=== PATIENT | female | born 2000 | race Caucasian/White ===

== ENCOUNTER 2021-09-05 15:40 | Emergency (ER) | payer OTHER, SELFPAY ==
[2021-09-05 15:59] VITALS: BP 138/93; PULSE 155; RESP 16; TEMP 37.1; O2SAT 98
--- NOTE | 2021-09-05 16:08 | ECG_ITS ---
Measurements Intervals [place] Rate: 127 P: 64 ND: 165 QRS: 26 QRSD: 84 T: 29 QT: 285 QTc: 416 Interpretive Statements SINUS TACHYCARDIA Otherwise normal ECG NO PREVIOUS ECG AVAILABLE FOR COMPARISON Electronically Signed On 09-06-2021 17:48:33 CDT by Romario Thomason M.D.
[2021-09-05 16:34] LABS: Basophils Absolute Auto 0.01 K/mm3 (0.00-0.10); Basophils Percent Auto 0.1 % (0.0-1.0); Eosinophils Absolute Auto 0.08 K/mm3 (0.02-0.50); Eosinophils Percent Auto 0.9 % (1.0-6.0); Hematocrit 39.8 % (35.0-49.0); Immature Granulocyte Absolute 0.03 K/mm3 (0.00-0.00); Immature Granulocyte Percent A 0.3 % (0.0-0.0); Lymphocytes Absolute Auto 0.96 K/mm3 (1.10-4.50); Lymphocytes Percent Auto 10.3 % (18.0-42.0); Mean Corpuscular HGB Conc 32.7 g/dL (32.0-36.0); Mean Corpuscular Hemoglobin 32.8 pg (27.0-31.0); Mean Corpuscular Volume 100.5 fL (78.0-102.0); Mean Platelet Volume 9.9 fl (9.2-11.8); Monocytes Absolute Auto 0.47 K/mm3 (0.10-0.90); Neutrophils Absolute Auto 7.8 K/mm3 (1.7-7.2); Neutrophils Percent Auto 83.4 % (50.0-70.0); Platelet Count Result 229 K/mm3 (150-420); Red Blood Count 3.96 M/mm3 (4.20-5.40); Red Cell Distribution Width 12.6 % (11.6-14.4); White Blood Count 9.3 K/mm3 (4.8-10.8)
--- NOTE | 2021-09-05 16:34 | ED.PSYCH ---
HPI - Psych General Chief Complaint: Psychiatric Symptoms Stated Complaint: took 12 ibuprofen Time Seen by Provider: 09/05/21 15:42 Source: patient and RN notes reviewed Mode of arrival: ambulatory Limitations: no limitations History of Present Illness complaint: suicidal ideation and feels depressed Onset (ago): hour(s) (12) History of same: Yes Relieving factors: none Exacerbating factors: none Associated psychiatric symptoms: depression and suicidal ideation Associated symptoms: denies other symptoms Treatments prior to arrival: none If self harm: intentional overdose and self-inflicted trauma Related Data Home Medications Medication Instructions Recorded Confirmed norgestimate-ethinyl estradiol See Rx Instructions .ROUTE .COMPLEX 09/05/21 09/05/21 [[id number]] sertraline 25 mg PO DAILY 09/05/21 09/05/21 Allergies Allergy/AdvReac Type Severity Reaction Status Date / Time No Known Allergies Allergy Verified 09/05/21 16:07 Review of Systems Review of Systems: All systems reviewed & are unremarkable except as noted in HPI and below [facility] Past Medical History Medical History (Updated 09/06/21 @ 09:07 by Allan Stewart MD) Suicidal behavior Exam Const: General: no acute distress and alert Nutritional Appearance: obese Orientation/consciousness: patient oriented x3 Limitations: no limitations HENMT: Head: normal to inspection Ears: external ears normal, TM's normal bilaterally and EAC's normal General nose exam: Normal external nose present and Normal nares present Face and sinus: sinuses nontender Mouth: Yes moist mucous membranes abnormal Eyes: Conjunctivae: conjunctivae normal Pupils: Equal, round and reactive pupils present EOM: EOMs intact bilaterally Neck: Neck: normal visual inspection and no lymphadenopathy Chest: Chest palpation & inspection: normal inspection of the chest Resp: Effort & Inspection: normal respiratory effort Auscultation: clear to auscultation bilaterally Cardio: Rate: regular rate and tachycardic GI: GI Palp: Yes Soft to palpation and No Tenderness to palpation present (GI) Auscultation: normal bowel sounds : General: Yes bladder normal to palpation and Yes no CVA tenderness Back/Spine/Pelvis: Back: no CVA tenderness Skin: General skin exam: normal color Rashes: no rashes Neuro: General: patient oriented x3, moves all extremities, no meningeal signs, no focal motor deficits and CN's II-XI intact bilaterally Extrem: General: normal to inspection and no pedal edema Psych: Appearance: well kempt Affect: Sad affect present Thought content: Yes Suicidality present Course Course Emergency Course: Pt was stable and medically cleared for Behavioral Health review. For inpatient psych admission. Pt was endorsed to Dr Izquierdo at 0700 Reevaluation(s) Reevaluation #1: VSS. bilateral palmar forearms multiple superficial linear lacerations. Date: 09/05/21 Time: 16:38 Vital Signs Vital signs: Vital Signs Temperature 37.1 C 09/05/21 15:59 Pulse Rate 155 H 09/05/21 15:59 Respiratory Rate 16 09/05/21 15:59 Blood Pressure 138/93 H 09/05/21 15:59 Pulse Oximetry 98 09/05/21 15:59 Temperature 36.5 C 09/05/21 19:24 Pulse Rate 120 H 09/06/21 06:16 Respiratory Rate 16 09/06/21 06:16 Blood Pressure 116/75 09/06/21 06:16 Pulse Oximetry 99 09/06/21 06:16 MDM - Psych Differential Diagnosis Differential diagnosis: Likely suicidal ideation and depression Medical Records Attestation: I reviewed the patient's medical records. Lab Data Attestation: I reviewed the patient's lab results. Result diagrams: 09/05/21 16:29 09/05/21 20:30 Labs: Lab Results 09/05/21 09/05/21 09/05/21 Range/Units 16:29 1
[2021-09-05] MEDS: SODIUM CHLORIDE 0.9% IV 1,000 ML 999 ML IV CONT ×2 (16:50→20:25)
[2021-09-05 16:56] LABS: Acetaminophen 52 ug/mL (10-30); Alanine Aminotransferase 24 U/L (14-59); Albumin Level 3.6 g/dL (3.4-5.0); Alkaline Phosphatase 59 U/L (46-116); Anion Gap 9 mmol/L (8-16); Aspartate Amino Transferase 20 U/L (15-37); Bilirubin,Total 0.4 mg/dL (0.00-1.00); Blood Urea Nitrogen 9 mg/dL (7-18); Calcium 9.9 mg/dL (8.5-10.1); Carbon Dioxide 26 mmol/L (21-32); Chloride 103 mmol/L (98-108); Estimated Glomerular Filt Rate > 60; Glucose 102 mg/dL (70-99); Osmolality Calculated 284 mOsm/kg (285-295); Potassium 3.9 mmol/L (3.5-5.1); Sodium 138 mmol/L (136-145); Total Protein 7.5 g/dL (6.4-8.2)
[2021-09-05 16:57] LABS: Ethanol < 3 mg/dL (0-6); SPREG INTERNAL CONTROL Positive; Salicylate < 0.2 mg/dL (2.8-20.0); Serum Qual hCG Negative
[2021-09-05 17:00] LABS: Add Urine Microscopic? YES; Appearance Urine Clear (Clear); Bilirubin Urine Negative (Negative); Blood Urine 1+ (Negative); Color Urine Light Yellow (Yellow); Glucose Urine UA Negative (Negative); Ketones Urine Negative (Negative); Leukocyte Esterase Ur 2+ LEU/UL (Negative); Nitrate Urine Positive (Negative); Protein Urine 1+ (Negative); pH Urine 7.5 (5.0-8.0)
[2021-09-05 17:06] LABS: Bacteria Urine 1+ /hpf; RBC Urine 0-2 /hpf (0-2); Squamous Epithelial Cell Urine Few /hpf (Few); WBC Urine >75 /hpf (0-3)
[2021-09-05 17:07] LABS: Amphetamine Screen Urine Negative (Negative); Barbiturate Screen Urine Negative (Negative); Benzodiazepines Screen Urine Negative (Negative); Cannabinoid Screen Urine Positive (Negative); Cocaine Screen Urine Negative (Negative); Methadone Screen Urine Negative (Negative); Opiate Screen Urine Negative (Negative); Phencyclidine Screen Urine Negative (Negative)
[2021-09-05 19:24] VITALS: BP 142/88; PULSE 114; RESP 18; TEMP 36.5; O2SAT 99
[2021-09-05 20:49] LABS: Acetaminophen 30 ug/mL (10-30); Alanine Aminotransferase 25 U/L (14-59); Albumin Level 3.5 g/dL (3.4-5.0); Alkaline Phosphatase 57 U/L (46-116); Anion Gap 10 mmol/L (8-16); Aspartate Amino Transferase 21 U/L (15-37); Bilirubin,Total 0.6 mg/dL (0.00-1.00); Blood Urea Nitrogen 9 mg/dL (7-18); Calcium 9.4 mg/dL (8.5-10.1); Carbon Dioxide 25 mmol/L (21-32); Chloride 103 mmol/L (98-108); Estimated Glomerular Filt Rate > 60; Glucose 106 mg/dL (70-99); Osmolality Calculated 284 mOsm/kg (285-295); Sodium 138 mmol/L (136-145); Total Protein 7.4 g/dL (6.4-8.2)
[2021-09-05] MEDS: ONDANSETRON INJ 4 MG/2 ML VIAL IV PUSH (21:07)
--- NOTE | 2021-09-05 21:16 | PC.NURSE ---
[facility] called and informed of repeat labs. Per the dispatcher the tylenol level was in a normal range and there was no other need to follow up with Poison Control. ERP notified.
--- NOTE | 2021-09-05 21:34 | PC.NURSE ---
RN discussed with ERP and stated pt was medically clear and have the go ahead to call [facility].
--- NOTE | 2021-09-05 21:51 | PC.NURSE ---
RN talked to Travis from [facility], and was informed that pt is medically cleared. Travis states he is starting the process and will notify RN when he is on his way. Pt updated and gave pt an apple juice.
--- NOTE | 2021-09-05 22:46 | PCDIET ---
Pt's mother arrived and pt allowed her mother to come back into her room. Pt used the bathroom to urinate and had no other complaints at this time.
--- NOTE | 2021-09-05 23:04 | PC.NURSE ---
Pt vomited a moderate amount of bile colored emesis. Pt changed into new scrubs and has no other complaints at this time.
[2021-09-05 23:56] VITALS: BP 126/73; PULSE 121; RESP 18; O2SAT 98
--- NOTE | 2021-09-05 23:57 | PC.NURSE ---
[facility] was called and pt's information was given. [facility] states that pt does qualify and will be calling with more information within the next 2 hours.
--- NOTE | 2021-09-06 00:31 | ECG_ITS ---
Measurements Intervals [place] Rate: 116 P: 58 MO: 182 QRS: 17 QRSD: 85 T: 20 QT: 310 QTc: 432 Interpretive Statements SINUS TACHYCARDIA OTHERWISE NORMAL ECG COMPARED TO ECG 09/05/2021 16:20:28 NO SIGNIFICANT CHANGES Electronically Signed On 09-06-2021 17:51:11 CDT by Romario Thomason M.D.
[2021-09-06 00:32] VITALS: BP 128/73; PULSE 115; RESP 18; O2SAT 100
[2021-09-06] MEDS: SODIUM CHLORIDE 0.9% IV 1,000 ML 999 ML IV CONT (01:05)
[2021-09-06 01:06] VITALS: PULSE 123
[2021-09-06] MEDS: METOPROLOL TARTRATE INJ 5 MG/5 ML VIAL 2.5 MG IV PUSH ×2 (01:06→06:13)
[2021-09-06 05:12] VITALS: BP 117/76; PULSE 108; RESP 16; O2SAT 100
[2021-09-06 05:23] LABS: SARS-CoV-2 RNA PCR Negative (Negative)
[2021-09-06 06:13] VITALS: PULSE 120
[2021-09-06 06:16] VITALS: BP 116/75; PULSE 120; RESP 16; O2SAT 99
--- NOTE | 2021-09-06 06:33 | PC.NURSE ---
Travis from [facility] called to have RN fax chart, labs, and EKG to [facility]. RN faxed to Aisha at [facility].
--- NOTE | 2021-09-06 07:52 | PC.NURSE ---
patient spoke with [facility].
[2021-09-06 10:43] VITALS: BP 128/84; PULSE 105; RESP 16; TEMP 37.3; O2SAT 100
== END 2021-09-06 10:46 ==
PROVIDERS: Emergency Provider Emergency Medicine
DX: F41.9 Anxiety disorder, unspecified (principal); T14.91XA Suicide attempt, initial encounter; F32.A Depression, unspecified; Z20.822 Contact with and (suspected) exposure to COVID-19
CPT/HCPCS: 36415; 80053; 80307; 81001; 84443; 84703; 85025; 87077; 87086; 87088; 87186; 93005; 96361; 96365; 96374; 96375; 96376; 99285; C9803; J0696; J2405; J7030; U0003; U0005

== ENCOUNTER 2022-11-06 21:25 | Emergency (ER) | payer OTHER, SELFPAY ==
--- NOTE | ~2022-11-06 | XR_ITS ---
EXAM: XR wrist RT min 3V DATE: 11/06/2022 22:50 HISTORY: dog bite TO WRIST . COMPARISON: None available. FINDINGS: Normal mineralization. No fracture or dislocation. No lytic or blastic lesion. Joint space s are maintained. No erosion or periosteal change. Soft tissue swelling about the wrist. Small volume subcutaneous gas in the dorsal soft tissues. No radiopaque foreign body. IMPRESSION: No acute osseous finding in the right wrist. Reviewed, dictated and finalized at location K.
[2022-11-06 21:40] VITALS: BP 131/76; PULSE 112; RESP 17; TEMP 36.4; O2SAT 99
--- NOTE | 2022-11-06 22:39 | ED.ANIMALBIT ---
HPI - Animal Bite General Chief Complaint: Animal Bite Stated Complaint: dog bite Time Seen by Provider: 11/06/22 22:25 History of Present Illness HPI narrative: 22-year-old female reports for evaluation of multiple puncture wounds to her right forearm and hand and abrasions to her left forearm from a dog bite that occurred around 6 PM this evening. Patient states she was at a park, the dog came up to the patient and her sister. They began petting the dog and the sister over to hug the dog, then the dog started to attack sister. Patient states she tried to break up the fight and the dog bit her right hand and forearm. States the police came and followed the dog and it is in custody. She is unsure when her last tetanus was. She denies paresthesias, fever. Related Data Home Medications Medication Instructions Recorded Confirmed norgestimate 0.18 mg/0.215 mg/0.25 See Rx Instructions .Route .COMPLEX 09/05/21 09/05/21 mg-ethinyl estradiol 25 mcg tablet ([id number]) sertraline 25 mg tablet 25 mg PO DAILY 09/05/21 09/05/21 Allergies Allergy/AdvReac Type Severity Reaction Status Date / Time No Known Allergies Allergy Verified 11/06/22 21:55 Review of Systems Review of Systems: CONSTITUTIONAL: Denies fever, chills EYES: Denies visual changes, redness, or discharge. ENT: Denies rhinorrhea, congestion, sore throat, or otalgia. CARDIOVASCULAR: Denies chest pain, palpitations, or edema. RESPIRATORY: Denies cough or dyspnea. GASTROINTESTINAL: Denies abdominal pain, nausea, vomiting, or diarrhea. GENITOURINARY: Denies dysuria or hematuria. SKIN: See HPI MUSCULOSKELETAL: Denies back pain, joint pain, or myalgia. NEUROLOGIC: Denies headache, numbness, dizziness, or weakness. PSYCHIATRIC: Denies anxiety or depression. [facility] Past Medical History Medical History Suicidal behavior Exam Narrative: GENERAL: Well-appearing, in no acute distress. HEAD: Normocephalic EYES: PERRLA ENT: Nares clear. Mucous membranes moist. Oropharynx without tonsillar hypertrophy exudate or other lesions. NECK: Supple. CHEST: No respiratory distress. Clear to auscultation, no adventitious breath sounds. HEART: Regular rate and rhythm. No murmur heard. Normal peripheral pulses. ABDOMEN: Soft, nontender, normal active bowel sounds. EXTREMITIES: Normal range of motion. No edema. SKIN: Multiple puncture wounds to the R forearm and wrist with soft tissue swelling, bleeding controlled. Full range of motion of wrist and fingers. DP pulse 2+. Cap refill less than 2. Small abrasions to the left forearm with full range of motion of arm and wrist, DP pulse 2+. Sensation intact. NEURO: No focal deficits. Alert and oriented x3. PSYCH: Normal mood and affect. Course Vital Signs Vital signs: Vital Signs Temperature 97.5 F L 11/06/22 21:40 Pulse Rate 112 H 11/06/22 21:40 Respiratory Rate 17 11/06/22 21:40 Blood Pressure 131/76 11/06/22 21:40 Pulse Oximetry 99 11/06/22 21:40 Oxygen Delivery Room Air 11/06/22 21:40 Temperature 97.5 F L 11/06/22 21:40 Pulse Rate 89 11/06/22 23:57 Respiratory Rate 20 11/06/22 23:57 Blood Pressure 120/81 11/06/22 23:57 Pulse Oximetry 98 11/06/22 23:57 Oxygen Delivery Room Air 11/06/22 21:40 MDM - Animal Bite MDM Narrative Medical decision making narrative: 22-year-old female reports for evaluation of multiple puncture wounds to her right forearm and hand and abrasions to her left forearm from a dog bite that occurred around 6 PM this evening. Patient initially tachycardic at 112 which corrected, otherwise vital stable. Exam reveals multiple puncture wounds to the right wrist, bleeding controlled. Tetanus updated. X-rays without acute osseous abnormalities or foreign bodies. Puncture wounds irrigated extensively with saline, covered with triple antibiotic ointment and bandages. First dose of Augme
[2022-11-06] MEDS: TETANUS,DIPHTHERIA,AC PERTUSSIS ADULT (0.5 ML) BOOSTRIX IM (22:51)
[2022-11-06] MEDS: AMOXICILLIN/CLAVULANATE K 875-125 MG TAB 1 TABLET PO (23:01)
[2022-11-06 23:57] VITALS: BP 120/81; PULSE 89; RESP 20; O2SAT 98
== END 2022-11-07 00:05 | disposition home or self-care (01) ==
PROVIDERS: Emergency Provider Physician Assistant
DX: S51.851A Open bite of right forearm, initial encounter (principal); S61.551A Open bite of right wrist, initial encounter; S50.812A Abrasion of left forearm, initial encounter; Z23 Encounter for immunization; W54.0XXA Bitten by dog, initial encounter
CPT/HCPCS: 73110; 90471; 90715; 99283; A9270

== ENCOUNTER 2023-11-02 14:32 | Outpatient (CLI) | payer OTHER, SELFPAY ==
--- NOTE | ~2023-11-02 | US_ITS ---
US thyroid INDICATION: Hypothyroidism TECHNIQUE: Real-time sonographic images of the thyroid gland were obtained. COMPARISON: No prior studies for comparison. FINDINGS: The right thyroid lobe measures 4.1 x 1.3 x 1.4 cm. The left thyroid lobe measures 2.3 x 1 .5 x 1.2 cm. There is normal echotexture and echogenicity throughout the thyroid gland. No discrete n odules identified. Normal vascular flow is present. IMPRESSION: 1. Normal thyroid without discrete nodule or abnormal vascularity. Reviewed, dictated and finalized at location B.
== END 2023-11-02 14:33 | disposition home or self-care (01) ==
LOC: CHSIMG 14:34
PROVIDERS: PCP Registered Nurse; Visit Provider Family Medicine
DX: E03.8 Other specified hypothyroidism (principal)
CPT/HCPCS: 76536

== ENCOUNTER 2024-05-14 08:07 | Outpatient (RCR) | payer OTHER, SELFPAY ==
--- NOTE | 2024-05-14 09:33 | OPREHPOC ---
Outpatient Therapy Plan of Care This is a Multidisciplinary Plan of Care that may contain components documented by all disciplines (PT, OT, and ST.) PT Problem 1 PT Problem #1 Knowledge Deficit PT Goal 1 Goal / Goal Update 1. independent and compliant Target Visit 6 PT Problem 2 PT Problem #2 Pain PT Goal 1 Goal / Goal Update 1. 3/10 or less pain at worst in the lower back Target Visit 12 PT Problem 3 PT Problem #3 Impaired Strength PT Goal 1 Goal / Goal Update 1. 4+/5 or better bilateral hip strength 2. 3+/5 or better core strength Target Visit 12 PT Problem 4 PT Problem #4 Impaired Flexibility PT Goal 1 Goal / Goal Update 1. 30 degrees or less bilateral hamstrings tightness per the 90/90 test 2. mild or less bilateral piriformis mm tightness Target Visit 12 PT Problem 5 PT Problem #5 Impaired Functional Mobility PT Goal 1 Goal / Goal Update 1. oswestry to display 20% or less functional deficits 2. patient to tolerate sitting/standing for 2 hour bouts without increased pain 3. patient to begin 3 days weekly or more exercise program for weight loss and general conditioning Target Visit 12
--- NOTE | 2024-05-14 09:33 | PTOPEVAL1 ---
Assessment and note entered by JT File, PT Evaluation Information Assessment Status Evaluation ICD-10 Condition Codes (PT) Pain in low back M54.50 Onset 05/06/24 Subjective Information patient reports she has been having a lot of severe back pain. she reports she woke up in tears this morning from how severe her back pain has been. she reports she has had this severe pain since the beginning of this month. she reports she has had no injury to the back. she reports she has never had pain like this in her lower back before. she reports she was told it may have to do to a significant increase in weight (40ish lbs over the course of a few months). she reports she starts work today at [employer] in [place]. she reports she was not working any jobs at the time of her patricia pain beginning. she reports she does not have any pain down the legs. she reports she the pain stays right across the lower back. Reported Pain Level Pain Score 9: Self Report Assessment PT Clinical Summary ms. trujillo is a 24 yo woman who presents to skilled PT services for evaluation and treatment of lower back pain. she presents today with deficits in rom, strength, core stability, and functional activity performance. she has had a recent significant increase in weight that has attributed along with her core instability to her lower back pain. continued skilled PT is indicated to improve patients objective/functional deficits and improve her functional activity performance/ quality of life. Plan of Care Interventions Electrical Stimulation,Gait Training,Hot Pack/Cold Pack,Manual Therapy,Neuro Re-education,Patient/ Caregiver Education,Therapeutic Activities, Therapeutic Exercise PT Services Indicated Yes Treatment Frequency and 2x weekly for 12 visits Duration These treatments will address the objective and functional deficits as defined above. The patient will be advanced safely and appropriately in order for the patient to progress towards his/her prior level of function. Additional exercises will be introduced and as well as a comprehensive home exercise program upon discharge, if needed, ?to ensure carryover of functional gains achieved in the clinic. This treatment plan has been reviewed and agreement upon by the patient.
--- NOTE | 2024-05-26 11:23 | PCPTNOTE ---
Patient called & cancelled scheduled appointment this date.
--- NOTE | 2024-06-06 10:35 | PCPTNOTE ---
Cancelled session due to snow.
--- NOTE | 2024-06-10 17:29 | PCPTNOTE ---
Patient called & cancelled scheduled appointment this date.
--- NOTE | 2024-06-12 17:20 | PCPTNOTE ---
Cancelled session. Will be here next week.
--- NOTE | 2024-06-20 14:23 | PCPTNOTE ---
Pt cancelled session due to no transportation.
--- NOTE | 2024-06-27 17:28 | PCPTNOTE ---
Pt reports she cannot make it today.
--- NOTE | 2024-07-10 17:21 | PCPTNOTE ---
No call, no show.
== END 2024-08-12 23:59 | disposition home or self-care (01) ==
LOC: CHSPT 08:07
PROVIDERS: Visit Provider Family Medicine
DX: M54.50 Low back pain, unspecified (principal)
CPT/HCPCS: 97014; 97110; 97161; 97530; G0283